=== PATIENT | female | born 1965 | race Caucasian/White ===

== ENCOUNTER 2017-11-16 06:14 | Day surgery (SDC) | payer MEDICARE, OTHER ==
[2017-11-08 13:10] VITALS: BMI 47.2
--- NOTE | 2017-11-15 14:27 | HP ---
HISTORY AND PHYSICAL HISTORY: Denice Deleon is a 52-year-old patient seen with right shoulder pain. We discussed treatment options. She elected to proceed with right shoulder arthroscopy. Consent regarding procedure obtained. Medical clearance was provided by Dr. Heath. PAST MEDICAL HISTORY: Hypertension, hyperlipidemia, noninsulin-dependent diabetes. PAST SURGICAL HISTORY: Cholecystectomy, coronary artery bypass surgery, right knee arthroscopy, incisional herniorrhaphy, shoulder arthroscopy. MEDICATIONS: 1. Aspirin. 2. Furosemide. 3. Metoprolol. 4. Atorvastatin. 5. Isosorbide. 6. Metformin. 7. [place]. ALLERGIES: None reported. SOCIAL HISTORY: Patient denies current tobacco use. PHYSICAL EXAMINATION: Evaluation of the right shoulder, flexion 140 degrees, abduction 130 degrees, external rotation is 45 degrees with some weakness. Tenderness along the anterolateral acromion rotator cuff insertion. Impingement positive 90 degrees. Distal neurovascular exam intact. RADIOGRAPHS: Radiographs of the right shoulder revealed a lateral downsloping anterior acromion. Right shoulder MRI revealed partial rotator cuff tear and acromioclavicular joint osteoarthritis. IMPRESSION: Right shoulder impingement with partial rotator cuff tear and acromioclavicular joint osteoarthritis. PLAN: Right shoulder arthroscopy with subacromial decompression, possible arthroscopic rotator cuff repair, May procedure, and debridement. MMODL / IJN: [id number] /
[~2017-11-16 06:14] MED LIST: DEXAMETHASONE SOD PHOSPHATE 10 MG/ML 1 ML VIAL IV ONE; HYDROmorphone 0.5 MG/0.5 ML SYRINGE IVP PRN; LACTATED RINGERS 1,000 ML IV SCH; LIDOCAINE 1% 20 ML VIAL (10MG/ML) FOR IV START INTRADERMA PRN; ONDANSETRON 4 MG/2 ML VIAL IVP ONE; SCOPOLAMINE 1.5MG/72HR PATCH TRANSDERM ONE
[2017-11-16 06:53] VITALS: RESP 16
[2017-11-16 07:12] LABS: Glucose,Whole Blood 132 mg/dL (75-99)
[2017-11-16] MEDS ORDERED: MIDAZOLAM 2 MG/2 ML VIAL IV ONE (07:39)
[2017-11-16] MEDS ORDERED: fentaNYL (PF) 50 MCG/ML 2 ML AMP IV ONE (07:41)
[2017-11-16] MEDS ORDERED: LIDOCAINE 1% INJ 10MG/ML (20 ML MDV) ONE (07:59)
[2017-11-16] MEDS ORDERED: PROPOFOL 10 MG/ML 20 ML VIAL IV ONE (07:59)
[2017-11-16] MEDS ORDERED: LIDOCAINE 2%-EPI 1:100,000 20 ML VIAL ONE (07:59)
[2017-11-16] MEDS ORDERED: SUCCINYLCHOLINE CHLORIDE VIAL 200 MG/10 ML VIAL IV ONE (07:59)
[2017-11-16] MEDS ORDERED: ROPIVACAINE 5 MG/ML 30 ML VIAL ONE (07:59)
[2017-11-16] MEDS ORDERED: LACTATED RINGERS 1,000 ML IV ONE ×2 (09:34)
--- NOTE | 2017-11-16 09:45 | P.OP ---
Date of Procedure: 11/16/17 Preoperative Diagnosis: Right shoulder impingement Postoperative Diagnosis: 1. Right shoulder rotator cuff tear 2. Right shoulder impingement 3. Right shoulder acromioclavicular joint osteoarthritis 4. Right shoulder partial long head biceps tendon tear 5. Right shoulder superficial labral tear Procedure(s) Performed: 1. Right shoulder arthroscopic rotator cuff repair 2. Right shoulder arthroscopic subacromial decompression 3. Right shoulder arthroscopic May procedure 4. Right shoulder arthroscopic biceps tenotomy 5. Right shoulder arthroscopic debridement labral tear Implants: 1-5.5 peek anchor Anesthesia: GETA, regional (Interscalene block) Surgeon: Pancho Silva [employer] Cashier #1: Josue Whitney Estimated Blood Loss (ml): 15 Pathology: none sent Condition: stable Disposition: PACU Indications for Procedure: 52-year-old patient seen with progressive right shoulder pain. After treatment options were discussed, she elected to proceed with arthroscopy. Operative Findings: see description of procedure Description of Procedure: Patient underwent a shoulder block by department of anesthesia. The patient was then taken to the operative suite. The patient underwent a general anesthetic by the department of anesthesia. The patient was placed into a lateral position and secured. There was appropriate padding of the bony prominence. Right shoulder was then prepped and draped in normal sterile orthopedic fashion. We placed the extremity in 10 pounds of longitudinal traction. A posterior incision was now made for a posterior working portal site. The trocar and cannula were inserted into the glenohumeral joint. Arthroscopy was initiated. Spinal needle was now inserted anteriorly, to ascertain the anterior working portal site. An incision was now made in that area, a trocar was inserted followed by a probe. There was superficial tearing of the anterior and superior labrum present. Partial tearing long head biceps tendon. There was an obvious rotator cuff tear visualized from glenohumeral side along the anterior aspect of the distal supraspinatus. The glenohumeral joint appeared stable with no significant chondromalacia. I performed an arthroscopic biceps tenotomy. I debrided the labral tears down to stable tissue. The residual labrum was stable. Instruments now removed from the glenohumeral joint. Utilizing the posterior working portal site, the trocar and cannula were inserted into the subacromial space. Arthroscopy initiated. I made an incision 2 fingerbreadths lateral to the acromion. I introduced my trocar followed by my [employer] ablator. I now began ablating thick subacromial bursal tissue, which exposed the undersurface of the anterior acromion. This was diminished subacromial space. There was a very prominent anterior acromion. A motorized bur was introduced and a subacromial decompression was performed. I also excised some osteophytes off the inferior aspect of the distal clavicle. The AC joint was visualized and noted to be fairly arthritic. Our motorized bur was introduced in the anterior portal site and a May procedure was performed without difficulty, decompressing the AC joint nicely. I turned my attention to the rotator cuff. There was a 1 cm tear along the distal aspect of the supraspinatus. I debrided the margins on a stable tissue. Once it was completed the defect or tear measuring approximately 1.5 cm. It was freely mobile over the footprint. I abraded the footprint with a motorized bur. I introduced 2 everted mattress sutures with good bites of rotator cuff tendon. I repaired the tendon back down the footprint with one single 5.5 peek anchor. The residual suture limbs were clipped. Was good stable repair noted. I injected 1 mL UCT intra-articular. Instruments now removed from the portal sites. All portal sites were approximated with nylon suture. Sterile dressings were applied followed by a shoulder immobilizer. Samuel BUNCH The patient was awakened, transferred to a bed, and taken to recovery in stable condition.
[2017-11-16 09:47] VITALS: TEMP 97.6
[2017-11-16 09:56] LABS: Glucose,Whole Blood 137 mg/dL (75-99)
[2017-11-16 10:45] VITALS: BP 119/72; PULSE 87
== END 2017-11-16 11:07 | disposition home or self-care (01) ==
LOC: OR 06:14
PROVIDERS: ATTEND Orthopaedic Surgery
DX: M25.811 Other specified joint disorders, right shoulder (principal); M75.101 Unspecified rotator cuff tear or rupture of right shoulder, not specified as traumatic; M19.011 Primary osteoarthritis, right shoulder; S46.111A Strain of muscle, fascia and tendon of long head of biceps, right arm, initial encounter; S43.401A Unspecified sprain of right shoulder joint, initial encounter; X58.XXXA Exposure to other specified factors, initial encounter; M25.711 Osteophyte, right shoulder; E11.9 Type 2 diabetes mellitus without complications; Z79.84 Long term (current) use of oral hypoglycemic drugs; E78.5 Hyperlipidemia, unspecified; E66.01 Morbid (severe) obesity due to excess calories; Z68.42 Body mass index [BMI] 45.0-49.9, adult; I25.10 Atherosclerotic heart disease of native coronary artery without angina pectoris; Z72.0 Tobacco use; Z82.49 Family history of ischemic heart disease and other diseases of the circulatory system; Z95.1 Presence of aortocoronary bypass graft; H93.19 Tinnitus, unspecified ear; B37.2 Candidiasis of skin and nail; I10 Essential (primary) hypertension; I47.1 Supraventricular tachycardia; I87.2 Venous insufficiency (chronic) (peripheral); J30.9 Allergic rhinitis, unspecified; M17.9 Osteoarthritis of knee, unspecified; Z79.82 Long term (current) use of aspirin; Z79.51 Long term (current) use of inhaled steroids; Z79.899 Other long term (current) drug therapy
CPT/HCPCS: 29826; 29827; 29824; 64415; C1713; C1765; J2250; J0330; J1100; J0690; J2405; J2001; J3010; J2795; J2704